=== PATIENT | female | born 1970 | race Caucasian/White ===

== ENCOUNTER 2016-07-27 12:01 | Emergency (ER) | payer MEDICARE | END 2016-07-27 13:05 | disposition home or self-care (01) | LOC: ER1 12:01 | DX: S05.02XA Injury of conjunctiva and corneal abrasion without foreign body, left eye, initial encounter (principal); Z88.6 Allergy status to analgesic agent; W22.8XXA Striking against or struck by other objects, initial encounter | CPT/HCPCS: 99283 ==

== ENCOUNTER → 2020-05-25 | Outpatient (CLI) | payer MEDICARE, OTHER ==
[~2020-05-25] MED LIST: VALTREX1000 MG PO
== END ==
LOC: KOH-I 11:13
DX: R51.9 Headache, unspecified (principal)
CPT/HCPCS: 70450

== ENCOUNTER → 2020-05-30 | Outpatient (CLI) | payer MEDICARE, OTHER | LOC: US 13:30 | DX: T83.32XA Displacement of intrauterine contraceptive device, initial encounter (principal) | CPT/HCPCS: 76830 ==

== ENCOUNTER → 2020-06-15 | Outpatient (CLI) | payer MEDICARE, OTHER | LOC: CT 09:22 | DX: R10.33 Periumbilical pain (principal); R10.2 Pelvic and perineal pain | CPT/HCPCS: Q9967 ==

== ENCOUNTER → 2021-02-06 | Outpatient (CLI) | payer MEDICARE, OTHER | LOC: MAMO 09:03 | DX: Z12.31 Encounter for screening mammogram for malignant neoplasm of breast (principal) | CPT/HCPCS: 77063; 77067 ==

== ENCOUNTER 2021-02-20 21:41 | Emergency (ER) | payer MEDICARE, OTHER ==
[2021-02-20 22:18] LABS: HEMOGLOBIN 15.1 gm/dl (12.3-15.3); RED BLOOD COUNT 4.59 M/UL (4.00-5.10); WHITE BLOOD COUNT 12.8 K/UL (4.5-11.0)
[2021-02-20 22:45] LABS: BUN/CREATININE RATIO 21 (0-10)
== END 2021-02-21 00:54 | disposition home or self-care (01) ==
LOC: ER1 21:41
PROVIDERS: Physician Assistant
DX: R53.83 Other fatigue (principal); Z20.822 Contact with and (suspected) exposure to COVID-19; Z90.49 Acquired absence of other specified parts of digestive tract; Z88.8 Allergy status to other drugs, medicaments and biological substances
CPT/HCPCS: 70450; 71045; 80053; 80307; 81001; 82550; 82553; 83874; 83880; 84439; 84443; 84484; 85025; 87086; 93005; 99284; U0002

== ENCOUNTER 2021-06-24 03:17 | Emergency (ER) | payer MEDICARE, OTHER ==
[2021-06-24 04:34] LABS: RED BLOOD COUNT 4.67 M/UL (4.00-5.10)
== END 2021-06-24 06:23 | disposition home or self-care (01) ==
LOC: ER1 03:17
PROVIDERS: Family Medicine
DX: U07.1 COVID-19 (principal); E87.6 Hypokalemia; E87.1 Hypo-osmolality and hyponatremia; Z88.6 Allergy status to analgesic agent
CPT/HCPCS: 0240U; 71045; 80048; 85025; 99283

== ENCOUNTER → 2021-06-25 | Outpatient (CLI) | payer MEDICARE, OTHER ==
[~2021-06-25] VITALS: Ht 152.4 cm; Wt 122.5 kg
== END ==
LOC: EROP 10:55
DX: U07.1 COVID-19 (principal); Z23 Encounter for immunization
CPT/HCPCS: M0247; Q0247

== ENCOUNTER → 2021-06-28 | Outpatient (CLI) | payer MEDICARE, OTHER | LOC: CT 08:30 | DX: R27.0 Ataxia, unspecified (principal) | CPT/HCPCS: 70496; Q9967 ==

== ENCOUNTER 2021-08-17 11:14 | Emergency (ER) | payer MEDICARE, OTHER ==
[2021-08-17 11:45] LABS: HEMOGLOBIN 15.9 gm/dl (12.3-15.3); RED BLOOD COUNT 4.91 M/UL (4.00-5.10); WHITE BLOOD COUNT 6.7 K/UL (4.5-11.0)
[2021-08-17] MEDS ORDERED: CEPHALEXIN500 MG PO (12:54)
== END 2021-08-17 14:38 | disposition home or self-care (01) ==
LOC: ER1 11:14
PROVIDERS: Physician Assistant
DX: R20.2 Paresthesia of skin (principal); F41.0 Panic disorder [episodic paroxysmal anxiety]; I10 Essential (primary) hypertension; Z88.8 Allergy status to other drugs, medicaments and biological substances
CPT/HCPCS: 70450; 71045; 80053; 81001; 82550; 82553; 83735; 84439; 84443; 84484; 85025; 87086; 93005; 99285